=== PATIENT | male | born 1930 | race Caucasian/White ===

== ENCOUNTER 2016-11-30 10:21 | Outpatient (CLI) | payer MEDICARE, OTHER | END 2016-11-30 10:22 | disposition home or self-care (01) | LOC: SC 10:21 | PROVIDERS: ATTEND Internal Medicine Pulmonary Disease | DX: G47.33 Obstructive sleep apnea (adult) (pediatric) (principal) | CPT/HCPCS: 99203; G0463; 99212 ==

== ENCOUNTER 2016-12-24 22:36 | Outpatient (CLI) | payer MEDICARE, OTHER | END 2016-12-24 22:37 | disposition home or self-care (01) | LOC: SC 22:36 | PROVIDERS: ATTEND Internal Medicine Pulmonary Disease | DX: G47.33 Obstructive sleep apnea (adult) (pediatric) (principal) | CPT/HCPCS: 95810 ==

== ENCOUNTER 2017-01-07 09:17 | Outpatient (CLI) | payer MEDICARE, OTHER | END 2017-01-07 09:18 | disposition home or self-care (01) | LOC: SC 09:17 | PROVIDERS: ATTEND Nurse Practitioner Family | DX: G47.33 Obstructive sleep apnea (adult) (pediatric) (principal); I49.9 Cardiac arrhythmia, unspecified | CPT/HCPCS: 99214; G0463; 99212 ==

== ENCOUNTER 2017-02-05 20:40 | Outpatient (CLI) | payer MEDICARE, OTHER | END 2017-02-05 20:41 | disposition home or self-care (01) | LOC: SC 20:40 | PROVIDERS: ATTEND Internal Medicine Pulmonary Disease | DX: G47.33 Obstructive sleep apnea (adult) (pediatric) (principal); G47.61 Periodic limb movement disorder; R09.02 Hypoxemia; Z68.30 Body mass index [BMI] 30.0-30.9, adult | CPT/HCPCS: 95811 ==

== ENCOUNTER 2017-02-18 10:16 | Outpatient (CLI) | payer MEDICARE, OTHER | END 2017-02-18 10:17 | disposition home or self-care (01) | LOC: SC 10:16 | PROVIDERS: ATTEND Nurse Practitioner Family | DX: G47.33 Obstructive sleep apnea (adult) (pediatric) (principal); G47.61 Periodic limb movement disorder; R09.02 Hypoxemia | CPT/HCPCS: 99214; G0463; 99212 ==

== ENCOUNTER 2017-03-22 10:56 | Outpatient (CLI) | payer MEDICARE, OTHER | END 2017-03-22 10:57 | disposition home or self-care (01) | LOC: SC 10:56 | PROVIDERS: ATTEND Nurse Practitioner Family | DX: G47.33 Obstructive sleep apnea (adult) (pediatric) (principal) | CPT/HCPCS: 99214; G0463; 99212 ==

== ENCOUNTER 2017-05-06 10:48 | Outpatient (CLI) | payer MEDICARE, OTHER | END 2017-05-06 10:49 | disposition home or self-care (01) | LOC: SC 10:48 | PROVIDERS: ATTEND Nurse Practitioner Family | DX: G47.33 Obstructive sleep apnea (adult) (pediatric) (principal); R09.02 Hypoxemia | CPT/HCPCS: 99213; G0463; 99212 ==

== ENCOUNTER 2018-02-22 08:00 | Outpatient (CLI) | payer MEDICARE, OTHER | END 2018-02-22 08:01 | disposition home or self-care (01) | LOC: LAB.WCP 08:00 | PROVIDERS: ATTEND Family Medicine | DX: R41.3 Other amnesia (principal) | CPT/HCPCS: 36415; 82607 ==

== ENCOUNTER 2018-06-17 13:33 | Outpatient (CLI) | payer MEDICARE, OTHER ==
--- NOTE | 2018-06-17 14:48 | XRAY Report ---
Reason: CHEST CONGESTION Procedure Date: 06/17/2018 Accession Number: [id number] / [id number] Procedure: WCP - Chest 2 View X-Ray CPT Code: 65481 FULL RESULT: EXAM: CHEST RADIOGRAPHY EXAM DATE: 06/17/2018 01:53 PM. CLINICAL HISTORY: Cough. COMPARISON: None. TECHNIQUE: 2 views. FINDINGS: Lungs/Pleura: No focal opacities evident. No pleural effusion. No pneumothorax. Normal volumes. Mediastinum: Heart and mediastinal contours are unremarkable. Other: Left-sided cardiac implant is in place with leads projecting over right atrium and right ventricular apex. IMPRESSION: No acute cardiopulmonary abnormality demonstrated. RADIA
== END 2018-06-17 13:34 | disposition home or self-care (01) ==
LOC: DI.WCP 13:33
PROVIDERS: ATTEND Family Medicine
DX: R09.89 Other specified symptoms and signs involving the circulatory and respiratory systems (principal)
CPT/HCPCS: 71046

== ENCOUNTER 2018-12-28 14:20 | Emergency (ER) | payer MEDICARE, OTHER ==
--- NOTE | 2018-12-28 15:33 | ED Physician Documentation ---
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 He has taken several indomethicin tablets from a previous, out- of date prescription. Over the last several days he has had redness, swelling and pain over his base of his right great toe. It is now painful for him to walk, so he presented to the emergency department. He denies fever, chills. He otherwise feels well. The area of his chronic heel infection he states is unchanged, and is on the opposite side of his foot from his toe. He thinks they are unrelated. No trauma to the toe Review of Systems Constitutional: denies: Fever Cardiac: denies: Chest pain / pressure Respiratory: denies: Dyspnea GI: denies: Abdominal Pain Skin: reports: Rash Musculoskeletal: reports: Extremity pain PD PAST MEDICAL HISTORY - Past Medical History Musculoskeletal: Other (Chronic infection of right heel) - Past Surgical History Other past surgical history: R knee replacement - Present Medications Home Medications: Ambulatory Orders Medication Instructions Recorded Confirmed Gabapentin [Neurontin] 300 mg PO HS 09/22/12 09/22/12 Sildenafil Citrate [Viagra] 25 mg PO PRN 09/22/12 09/22/12 Ca Cmb No.1/Vit D3/B-6/FA/B12 1 each PO DAILY 01/24/13 01/24/13 [Vitamin D3 1,000 Unit Tablet] Krill/Om3/Dha/Epa/Om6/Lip/Astx 1 each PO DAILY 01/24/13 01/24/13 [Krill Oil 1,000 mg Softgel] Multivitamin [Multi-Vitamin Daily] 1 each PO 01/24/13 01/24/13 Tamsulosin [Flomax] 0.4 mg PO BID 01/24/13 01/24/13 Ubidecarenone [Coq-10] 100 mg PO DAILY 01/24/13 01/24/13 Ibuprofen 600 mg PO Q6H PRN #30 tablet 12/28/18 - Allergies Allergies/Adverse Reactions: Allergies Allergy/AdvReac Type Severity Reaction Status Date / Time amoxicillin [Amoxicillin] Allergy Unknown Rash Unverified 09/22/12 12:29 pacemaker AdvReac Uncoded 11/24/12 15:49 - Social History Does the pt have substance abuse?: No PD ED PE NORMAL - Vitals Vital signs reviewed: Yes - General General: Alert and oriented X 3, No acute distress - HEENT HEENT: PERRL - Neck Neck: Supple, no meningeal sign - Cardiac Cardiac: RRR - Respiratory Respiratory: Clear bilaterally - Abdomen Abdomen: Soft, Other (Rotund) - Derm Derm: Warm and dry - Extremities Extremities: Other (Over the right great toe there is erythema, edema, and warmth. Area is tender to palpation especially along the joint. There is some redness extending from the toe region to the midfoot. Over the right heel bandages removed to reveal a 1 center meter by 1 cm chronic appearing wound with no significant erythema. There is a small amount of purulent drainage on the bandage, which patient states is normal for him.Sensation is intact to light touch over the entire foot, patient is able to wiggle his toes. Distal pulses are 2+) - Neuro Neuro: Alert and oriented X 3 - Psych Psych: Normal mood, Normal affect Results - Vitals Vitals: Vital Signs - 24 hr 12/28/18 16:03 Heart Rate 71 Respiratory 18 Rate Blood Pressure 145/65 H O2 Saturation 95 Oxygen O2 Source Room air - Labs Labs: Laboratory Tests 12/28/18 12/28/18 15:46 15:46 WBC 10.8 RBC 4.67 L Hgb 13.5 L Hct 40.9 L MCV 87.6 MCH 28.9 MCHC 33.0 RDW 13.9 Plt Count 218 MPV 10.2 Neut # (Auto) 7.9 H Lymph # (Auto) 1.3 L Stanly # (Auto) 1.3 H Eos # (Auto) 0.1 Baso # (Auto) 0.1 Absolute Nucleated RBC 0.00 Nucleated RBC % 0.0 Sodium 140 Potassium 3.7 Chloride 106 Carbon Dioxide 23 Anion Gap 11.0 BUN 14 Creatinine 1.0 Estimated GFR (MDRD) 71 L Glucose 116 H Calcium 9.3 C-Reactive Protein 6.3 H PD MEDICAL DECISION MAKING - ED course Complexity details: considered differential (Gout, psuedo gout, cellultiis, septic arthitis) ED course: Pt presents with podagra with a history of gout. He also has a chronic heel infection, through this is the opposite side of his foot and does not appear inflamed. He is afebrile, with no leukocytosis, and only a very mildly elevated CRP. XR shows no fracture, but changes that are non-specific, and may be seen with gout. I discussed with patient attempting arthrocentesis versus treating for presumed gout and watching very carefully for any signs of progression or infection. He would like to wait and watch, given he has a known diagnosis of gout. I feel this is reasonable. Ibuprofen prescribed and return precautions discussed in depth. Patient agrees and was discharged in the care of his . Departure - Departure Disposition: Home, Self Care Clinical Impression: Podagra Condition: Good Instructions: ED Arthritis Gout Follow-Up: Reza Matute MD [Primary Care Provider] - Tomorrow (If unable to follow up tomorrow and you have any worsening, return to the ED.) Prescriptions: Ibuprofen 600 mg PO Q6H PRN #30 tablet PRN Reason: Pain Comments: You were seen today for pain at the right base of your toe. This is likely gout. We cannot completely exclude infection at this time, if your redness is increasing, or you have increasing pain, return to the emergency department for recheck. If you develop any fever, or there is redness streaking up your leg, return to the emergency department immediately. You may take ibuprofen for discomfort. Please follow-up with your primary care provider Discharge Date/Time: 12/28/18 18:18
[2018-12-28 15:52] LABS: BASOPHILS # (AUTO) 0.1 10^3/uL (0.0-0.1); BASOPHILS % (AUTO) 0.6 %; EOSINOPHILS # (AUTO) 0.1 10^3/uL (0.0-0.7); EOSINOPHILS % (AUTO) 1.1 %; HGB - HEMOGLOBIN 13.5 g/dL (14.0-18.0); LYMPHOCYTES # (AUTO) 1.3 10^3/uL (1.5-3.5); LYMPHOCYTES % (AUTO) 12.4 %; MEAN CORPUSCULAR HEMOGLOBIN 28.9 pg (27.0-31.0); MEAN CORPUSCULAR VOLUME 87.6 fL (80.0-94.0); MEAN PLATELET VOLUME 10.2 fL (7.4-11.4); MONOCYTES # (AUTO) 1.3 10^3/uL (0.0-1.0); NEUTROPHILS # (AUTO) 7.9 10^3/uL (1.5-6.6); NEUTROPHILS % (AUTO) 73.3 %; PLT - PLATELET COUNT 218 10^3/uL (130-450); RED BLOOD COUNT 4.67 10^6/uL (4.70-6.10); RED CELL DISTRIBUTION WIDTH 13.9 % (12.0-15.0); WHITE BLOOD COUNT 10.8 x10^3/uL (4.8-10.8)
[2018-12-28 16:03] VITALS: BP 145/65
--- NOTE | 2018-12-28 16:09 | XRAY Report ---
Reason: Pain in right great toe + hx osteo of heel Procedure Date: 12/28/2018 Accession Number: [id number] / [id number] Procedure: XR - Foot 3 View RT CPT Code: FULL RESULT: EXAM: RIGHT FOOT RADIOGRAPHY EXAM DATE: 12/28/2018 03:30 PM. CLINICAL HISTORY: Pain in right great toe + hx osteo of heel. COMPARISON: None. TECHNIQUE: 3 views. FINDINGS: Bones: Well-corticated periarticular in the first metatarsal head. There is bony prominence of the first metatarsal head. Os navicular. Joints: Valgus angulation of the first metatarsal phalangeal joint. Soft Tissues: Soft tissue swelling along the medial aspect of the first metatarsal head. IMPRESSION: 1. Soft tissue swelling along the medial aspect of the first metatarsal head with well-corticated periarticular erosions in the medial aspect of the first metatarsal head. Findings are nonspecific and well osteomyelitis cannot be excluded gout is also in the differential. If there is continued clinical concern for infection, a forefoot MRI with contrast may be of benefit. 2. No fracture identified. RADIA
[2018-12-28 16:18] LABS: CALCIUM 9.3 mg/dL (8.5-10.3); CRP - C-REACTIVE PROTEIN 6.3 mg/dL (0-1.0)
[2018-12-28] MEDS ORDERED: BUFFERED LIDOCAINE 10 ML SYRINGE SUBQ STA (16:56)
== END 2018-12-28 18:18 | disposition home or self-care (01) ==
LOC: ED 14:20
DX: M10.9 Gout, unspecified (principal); L08.89 Other specified local infections of the skin and subcutaneous tissue; B95.5 Unspecified streptococcus as the cause of diseases classified elsewhere
CPT/HCPCS: 36415; 80048; 85025; 86140; 99283

== ENCOUNTER 2019-05-10 14:46 | Outpatient (CLI) | payer MEDICARE, OTHER | END 2019-05-10 14:47 | disposition critical access hospital (66) | LOC: EMS 14:46 | PROVIDERS: ATTEND Surgery | DX: S09.90XA Unspecified injury of head, initial encounter (principal); W01.0XXA Fall on same level from slipping, tripping and stumbling without subsequent striking against object, initial encounter; Y92.009 Unspecified place in unspecified non-institutional (private) residence as the place of occurrence of the external cause | CPT/HCPCS: A0425; A0429 ==

== ENCOUNTER 2019-05-10 15:04 | Emergency (ER) | payer MEDICARE, OTHER ==
[2019-05-10] MEDS ORDERED: NAPROXEN 250 MG TABLET PO STA (15:22)
[2019-05-10] MEDS ORDERED: ACETAMINOPHEN 325 MG TABLET PO STA (15:22)
--- NOTE | 2019-05-10 16:21 | CT Report ---
Reason: fall forward; struck face/head Procedure Date: 05/10/2019 Accession Number: [id number] / [id number] Procedure: CT - HEAD WO CPT Code: Final Report FULL RESULT: EXAM: CT HEAD EXAM DATE: 05/10/2019 03:56 PM. CLINICAL HISTORY: Fall forward; struck face/head. COMPARISON: None. TECHNIQUE: Multiaxial CT images were obtained from the foramen magnum to the vertex. Reformats: Sagittal and coronal. IV contrast: None. In accordance with CT protocol optimization, one or more of the following dose reduction techniques were utilized for this exam: automated exposure control, adjustment of mA and/or KV based on patient size, or use of iterative reconstructive technique. FINDINGS: Parenchyma: There is mild nonfocal periventricular white matter hypodensity. Negative for acute intracranial hemorrhage. There is no midline shift or herniation. Extraaxial Spaces: No subdural or epidural collections identified. Ventricles: Normal in size and position. Sinuses and Orbits: Imaged paranasal sinuses, orbits, and mastoids show no significant abnormality. Bones: There is a right supraorbital scalp hematoma. No calvarium fracture. Other: None. IMPRESSION: 1. Anterior scalp hematoma. 2. Negative for intracranial hemorrhage, mass-effect or acute intracranial abnormality. 3. Mild generalized nonfocal white matter disease. Nonspecific and most commonly attributed to microangiopathy. RADIA
--- NOTE | 2019-05-10 16:29 | CT Report ---
Reason: fall to face, headache Procedure Date: 05/10/2019 Accession Number: [id number] / [id number] Procedure: CT - CERVICAL SPINE WO CPT Code: Final Report FULL RESULT: EXAM: CT CERVICAL SPINE WITHOUT CONTRAST DATE: 05/10/2019 03:56 PM. HISTORY: Trauma. COMPARISONS: None. TECHNIQUE: Thin-section axial images were acquired of the cervical spine without contrast. Post-processing: Coronal and sagittal reformats. Other: None. In accordance with CT protocol optimization, one or more of the following dose reduction techniques were utilized for this exam: automated exposure control, adjustment of mA and/or KV based on patient size, or use of iterative reconstructive technique. FINDINGS: ALIGNMENT: There is 3 mm anterolisthesis C4 on C5 and C5 on C6 and C7 on T1, likely degenerative. BONES: The bones are osteopenic. No displaced acute fracture identified. The vertebral bodies are normal in height. No suspicious osseous lesions. PARASPINAL SOFT TISSUES: Bilateral carotid artery calcifications. There are heterotopic calcifications in the nuchal ligament. UPPER CHEST: Focus of scarring within the posterior right lung apex. DISKS/JOINTS: Advanced multilevel degenerative changes with disk height loss, uncovertebral joint arthropathy as well as facet joint arthropathy. There is a disk osteophyte complex at C3-C4 with question of small disk osteophyte complexes C4-C5 through C6-C7 There is at least moderate central canal stenosis at C3-C4. Mild central canal stenosis C2-C3, C4-C5 and C5-C6. IMPRESSION: 1. No acute fracture. 2. Multilevel degenerative changes. RADIA
--- NOTE | 2019-05-10 16:30 | CT Report ---
Reason: fall forward; struck nose/face Procedure Date: 05/10/2019 Accession Number: [id number] / [id number] Procedure: CT - MAXILLOFACIAL WO CPT Code: Final Report FULL RESULT: EXAM: CT MAXILLOFACIAL WITHOUT CONTRAST EXAM DATE: 05/10/2019 03:56 PM. CLINICAL HISTORY: Fall forward; struck nose/face. Swelling. COMPARISONS: None. TECHNIQUE: Thin-section axial images were acquired of the face without contrast. Post-processing: Coronal and sagittal reformats. Other: None. In accordance with CT protocol optimization, one or more of the following dose reduction techniques were utilized for this exam: automated exposure control, adjustment of mA and/or KV based on patient size, or use of iterative reconstructive technique. FINDINGS: Soft Tissue: Focal right frontal scalp soft tissue swelling/hematoma and other mild facial soft tissue swelling. Orbits: Symmetric and unremarkable. Bones: Multiple nasal fracture lucencies creating multiple small fragments with mild angulation and also minimal displacement on the left. No other definite fracture is visualized. Dental metallic hardware artifact is present. Temporomandibular Joints: The temporomandibular joints are symmetric and normally located. Sinuses: Possible mucus or polyps anteriorly superiorly within the nasal cavity. Other: Atherosclerotic vascular calcifications. IMPRESSION: Multiple nasal fracture lucencies creating multiple small fragments, with mild angulation and also minimal displacement on the left. RADIA
--- NOTE | 2019-05-10 17:04 | ED Physician Documentation ---
PD HPI HEAD INJURY - Stated complaint Stated Complaint: GLF - Chief complaint Chief Complaint: Trauma Hd/Nk - History obtained from History obtained from: Patient - History of Present Illness Mechanism of head injury: Fell (slid on wet concrete in garage as he was unloading groceries from back of car. Struck face on ground. heard him fall and came out to garage. He was moaning and had injury to nose/face, and could not get up from ground by himself. No prolonged LOC, but could not tell if LOC for few seconds until she was out there.) Where head injury occurred: Home Timing - onset: Today Location of injury: Front (nose and forehead/ midface area.) Quality of pain: Throbbing Associated symptoms: No: LOC, AMS, Nausea / vomiting, Neck pain Symptoms worsen with: Palpation Contributing factors: No: Anticoagulated, Intoxicated Similar symptoms before: Has not had sx before Review of Systems Constitutional: denies: Fever Nose: denies: Rhinorrhea / runny nose, Congestion Throat: denies: Sore throat Respiratory: denies: Cough GI: denies: Vomiting, Diarrhea Musculoskeletal: denies: Extremity pain Neurologic: denies: Generalized weakness, Syncope, Altered mental status, Headache PD PAST MEDICAL HISTORY - Past Medical History Past Medical History: Yes Cardiovascular: Hypertension, Coronary artery disease Respiratory: COPD, Sleep apnea, CPAP use Neuro: Dementia Endocrine/Autoimmune: None GI: None : Benign prostate hypertrophy Musculoskeletal: Other Derm: None - Past Surgical History Past Surgical History: Yes Cardiovascular: Coronary stent, Pacemaker, Cardiac catheterization - Present Medications Home Medications: Ambulatory Orders Medication Instructions Recorded Confirmed Gabapentin [Neurontin] 300 mg PO HS 09/22/12 09/22/12 Sildenafil Citrate [Viagra] 25 mg PO PRN 09/22/12 09/22/12 Ca Cmb No.1/Vit D3/B-6/FA/B12 1 each PO DAILY 01/24/13 01/24/13 [Vitamin D3 1,000 Unit Tablet] Krill/Om3/Dha/Epa/Om6/Lip/Astx 1 each PO DAILY 01/24/13 01/24/13 [Krill Oil 1,000 mg Softgel] Multivitamin [Multi-Vitamin Daily] 1 each PO 01/24/13 01/24/13 Tamsulosin [Flomax] 0.4 mg PO BID 01/24/13 01/24/13 Ubidecarenone [Coq-10] 100 mg PO DAILY 01/24/13 01/24/13 Ibuprofen 600 mg PO Q6H PRN #30 tablet 12/28/18 - Allergies Allergies/Adverse Reactions: Allergies Allergy/AdvReac Type Severity Reaction Status Date / Time amoxicillin [Amoxicillin] Allergy Unknown Rash Verified 05/10/19 15:16 - Social History Does the pt smoke?: No Smoking Status: Never smoker Does the pt drink ETOH?: No Does the pt have substance abuse?: No - Immunizations Immunizations are current?: Yes - POLST Patient has POLST: No PD ED PE NORMAL - Vitals Vital signs reviewed: Yes - General General: Alert and oriented X 3, No acute distress (had blood on nose bridge, some dried blood in nares. Abrasion on forehead. No dental injury. ), Well developed/nourished - HEENT HEENT: Dentition benign, Other (abrasions/partial thickness on bridge of nose and forehead. Dried blood in nares. No septal hematoma. Tender at nose with swelling but not obvious deviation. Congested with mucosal swelling in nares but able to breath both sides. ) - Neck Neck: Supple, no meningeal sign, No adenopathy - Cardiac Cardiac: RRR, No murmur - Respiratory Respiratory: Clear bilaterally, Other (no chestwall tenderness) - Abdomen Abdomen: Soft, Non tender - Derm Derm: Normal color, Warm and dry - Extremities Extremities: No tenderness to palpate, Normal ROM s pain, No calf tenderness / cord - Neuro Neuro: Alert and oriented X 3, No motor deficit, Normal speech Eye Opening: Spontaneous Motor: Obeys Commands Verbal: Oriented GCS Score: 15 Results - Vitals Vitals: Vital Signs - 24 hr 05/10/19 05/10/19 05/10/19 15:16 15:26 18:03 Temperature 36.4 C L 37.2 C Heart Rate 75 77 76 Respiratory 18 18 22 Rate Blood Pressure 162/80 H 145/70 H 175/96 H O2 Saturation 95 94 96 Oxygen O2 Source Room air - Rads (name of study) maxilofacial CT Radiology: Prelim report reviewed (nasal fractures.), See rad report neck CT Radiology: Prelim report reviewed (arthritic changes; no fractures), See rad report head CT Radiology: Prelim report reviewed (no ICH. ), See rad report PD MEDICAL DECISION MAKING - ED course Complexity details: considered differential (abrasions forehead and bridge of nose. No lacs needing suturing. ), d/w patient Departure - Departure Disposition: 01 Home, Self Care Clinical Impression: Facial contusion Qualifiers: Encounter type: initial encounter Qualified Code(s): S00.83XA - Contusion of other part of head, initial encounter Nasal bone fracture Qualifiers: Encounter type: initial encounter Fracture type: closed Qualified Code(s): S02 .2XXA - Fracture of nasal bones, initial encounter for closed fracture Facial abrasion Qualifiers: Encounter type: initial encounter Qualified Code(s): S00.81XA - Abrasion of other part of head, initial encounter Condition: Stable Record reviewed to determine appropriate education?: Yes Instructions: ED Fx Nasal Conf W X Ray Follow-Up: Reza Matute MD [Primary Care Provider] - [facility] [Provider Group] Comments: Ibuprofen or naproxen twice daily for inflammation. Add Tylenol 500 mg every 4- 6 hours if needed for pains. Use some saline spray or drops in the nostrils a few times daily and especially before bed with your CPAP. Use your CPAP if comfortable enough with that otherwise you could be without it for a couple of days. Ice or cool towels to the nose and forehead this evening and tomorrow to reduce swelling. Follow-up with ear nose and throat regarding the nasal fracture. Follow-up in about 1 to 2 weeks after the swelling is gone down. Call tomorrow for an appointment. Discharge Date/Time: 05/10/19 18:04
[2019-05-10 18:05] VITALS: BP 175/96
== END 2019-05-10 18:04 | disposition home or self-care (01) ==
LOC: EDUNIT# → ED 15:04
DX: S02.2XXA Fracture of nasal bones, initial encounter for closed fracture (principal); S00.81XA Abrasion of other part of head, initial encounter; S00.31XA Abrasion of nose, initial encounter; S00.83XA Contusion of other part of head, initial encounter; W01.0XXA Fall on same level from slipping, tripping and stumbling without subsequent striking against object, initial encounter; Y93.89 Activity, other specified; Y92.008 Other place in unspecified non-institutional (private) residence as the place of occurrence of the external cause; M50.31 Other cervical disc degeneration, high cervical region; M48.02 Spinal stenosis, cervical region; I10 Essential (primary) hypertension; F03.90 Unspecified dementia, unspecified severity, without behavioral disturbance, psychotic disturbance, mood disturbance, and anxiety
CPT/HCPCS: 70450; 70486; 72125; 99284; A9270

== ENCOUNTER 2019-05-24 08:00 | Outpatient (CLI) | payer MEDICARE, OTHER ==
[2019-05-24 18:58] LABS: BASOPHILS # (AUTO) 0.1 10^3/uL (0.0-0.1); BASOPHILS % (AUTO) 0.9 %; EOSINOPHILS # (AUTO) 0.5 10^3/uL (0.0-0.7); EOSINOPHILS % (AUTO) 5.2 %; HGB - HEMOGLOBIN 13.8 g/dL (14.0-18.0); LYMPHOCYTES # (AUTO) 1.7 10^3/uL (1.5-3.5); LYMPHOCYTES % (AUTO) 17.5 %; MEAN CORPUSCULAR HEMOGLOBIN 28.8 pg (27.0-31.0); MEAN CORPUSCULAR HGB CONC 32.5 g/dL (32.0-36.0); MEAN CORPUSCULAR VOLUME 88.3 fL (80.0-94.0); MEAN PLATELET VOLUME 10.8 fL (7.4-11.4); MONOCYTES # (AUTO) 0.9 10^3/uL (0.0-1.0); MONOCYTES % (AUTO) 9.5 %; NEUTROPHILS # (AUTO) 6.3 10^3/uL (1.5-6.6); NEUTROPHILS % (AUTO) 66.1 %; PLT - PLATELET COUNT 298 10^3/uL (130-450); RED CELL DISTRIBUTION WIDTH 13.5 % (12.0-15.0); WHITE BLOOD COUNT 9.6 x10^3/uL (4.8-10.8)
[2019-05-24 19:20] LABS: ALBUMIN/GLOBULIN RATIO 1.3 (1.0-2.2); BILIRUBIN,TOTAL 1.4 mg/dL (0.2-1.0); CALCIUM 9.7 mg/dL (8.5-10.3); CREATININE 1.1 mg/dL (0.6-1.2)
== END 2019-05-24 08:01 | disposition home or self-care (01) ==
LOC: LAB.WCP 08:00
PROVIDERS: ATTEND Family Medicine
DX: I50.20 Unspecified systolic (congestive) heart failure (principal); R55 Syncope and collapse
CPT/HCPCS: 36415; 80053; 83880; 84443; 85025

== ENCOUNTER 2020-01-02 09:30 | Outpatient (CLI) | payer MEDICARE, OTHER ==
--- NOTE | 2020-01-02 14:22 | CONSULTATION NOTE ---
Palliative Care Consultation - Referral Referring Provider: Dr. Reza Matute Time of Visit: [id number] Referral setting: Home Referral Reason: Cognitive impairment/Advanced Care Planning - Information Sources Records reviewed: Previous records reviewed History/Review of Systems obtained from: Patient, Family (/TALIB Rae) Exam limitations: Clinical condition ([place] and short term memory impairment noted) - History of Present Illness Brief History of Present Illness: This is an 89 year old gentleman who is seen and evaluated in his home for initial palliative care consultation with his /TALIB Rae present for evaluation due to underlying cognitive impairment and advanced care planning. The patient has had a short-term memory loss over the last several years but has become more pronounced after the patient sustained a fall in May 2019 where he fell in the parking lot of their condo facility. The patient broke his nose and sustained several lacerations that resulted in bleeding and he was evaluated in the emergency department. The patient does recognize that he has some memory impairment. Since May the has noticed a quick decline in his retention. He is also requiring increased prompting and assistance by his . He is no longer able to operate the remote control independently within their home. He also has certain behaviors that he perseverates on that varies. For 1 month he was adamant not to have any of the windows open. Now, he is quite adamant to have the windows open. The patient has developed a cyst to his central back between his shoulder blades. The reports that that has been present for several months and has grown in size. It was not until approximately 1 week ago that it became angry and red. Then in the last few days it has started to weep discharge. The patient has been keeping the site clean and applying a local dressing to keep t he site dry. The patient also had a growth further down his back that was increasing in size. They reported the concerns to his PCP when last evaluated and was seen at the [facility] where a biopsy was performed that was negative for malignancy over the summer. The patient has a small scab to that site but no evidence of erythema. He also has had issues with the heel of his right foot for a pproximately the last 13 years. 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 He did potentially develop an infection that required a surgery but the patient cannot fully recall. Presently the site has a scab to it. He has in the past gone to wound care clinics routinely without full resolution of the site. He denies any pain locally. The patient has had a decline in his appetite but no noted weight loss. He and his both report that his clothes are fitting the same. He he does consume boost during the day to supplement his calories. His reports that he will be engaged regarding a meal but then will pick at it not to completing it. The patient himself denies of acute concerns. The patient's offered com plaints of above as well as the patient having some underlying depression. The patient denies depressive symptoms or sadness. He typically will nap for 6 to 8 hours/day. He is less talkative than he once was where he was engaging. He will sit in front of the television and watch TV without the volume on all day. Patient seen in the living room in side chair well groomed with no acute distress. Medical/Surgical History - Past Medical History Cardiovascular: reports: Hypertension, Coronary artery disease, Other ( Peripheral artery disease) Respiratory: reports: COPD, Sleep apnea, CPAP use Neuro: Dementia Endocrine/Autoimmune: reports: None GI: reports: None : reports: Benign prostate hypertrophy HEENT: reports: Macular degeneration, Chronic hearing loss Musculoskeletal: reports: Other Derm: reports: None MRSA Hx?: No Other Past Medical History: Glaucoma - Past Surgical History General: reports: Other (right hernia repair) Ortho: reports: Other (achilles tendon repair; LTKR 2003) Cardiovascular: reports: Coronary stent (x2), Pacemaker (followed by Dr. Tijerina), Cardiac catheterization - Substance History Use: Uses substance without health or social issues: NONE (Former tobacco use for 35 years) Social History - Living Situation Living arrangement: At home Living Situation: With spouse/s.o. 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 He then transition to [employer] where he worked with [employer]. He was born in [place], [place]. He lived in [place] for some time. He is presently to his fourth , Kyra. The patient and the Kyra have been for approximately 7 years after they reconnected has they both grew up in [place] and went to high school together. The patient has 1 daughter from a previous marriage, Marcia who still resides in [place]. Kyra has a son that lives locally in [place]. The patient continues to be obsessed with flying. He wishes that he would still be able to do this. He does not have any other interests that he does throughout the day except watch TV. They have a shower aide who attends the patient during the week. Family History - Family History Family History: Mother: , Father: Family History Comment/Other: Sister, history of open heart surgery and dementia presently living in memory care. Brother, with dementia and history of aneurysm. Father in late 70s early/ 80s from myocardial infarction. Mother of "old age" at age 98. Medications/Allergies - Medications Home Medications: Ambulatory Orders Medication Instructions Recorded Confirmed Aspirin [Aspirin EC] 81 mg PO DAILY 01/02/20 01/02/20 Atorvastatin Calcium 20 mg PO BID 01/02/20 01/02/20 Carvedilol [Coreg] 1 tab PO BID 01/02/20 01/02/20 Chlorthalidone 0.5 tab PO DAILY 01/02/20 01/02/20 Clindamycin HCl [Clindamycin 300MG 2 cap PO .1HRPRIORTODENTIST 01/02/20 01/02/20 CAP] Latanoprost/Pf [Latanoprost 0.005% 1 drops .LEFT EYE DAILY 01/02/20 01/02/20 Eye Drop] Potassium Chloride [Klor-Con 10] 10 meq PO DAILY 01/02/20 01/02/20 - Allergies Allergies/Adverse Reactions: Allergies Allergy/AdvReac Type Severity Reaction Status Date / Time amoxicillin [Amoxicillin] Allergy Unknown Hives Verified 01/02/20 14:34 Review of Systems - Constitutional Constitutional: reports: Fatigue, Poor appetite. denies: Fever, Weight loss - Eyes Eyes: reports: Vision loss (left eye), Corrective lenses - Ears, Nose & Throat Ears, Nose & Throat: reports: Hearing loss, Hearing aids (does not have earing aids presently) - Cardiovascular Cardiovascular: denies: Palpitations, Chest pain - Respiratory Respiratory: denies: Cough, Wheezing - Gastrointestinal Gastrointestinal: reports: Poor appetite (see HPI for full details), Other (in last 3-4 months has noticed episodes of feccal incontinence). denies: Abdominal pain, Constipation, Diarrhea, Vomiting - Genitourinary Genitourinary: reports: Incontinence. denies: Dysuria - Musculoskeletal Musculoskeletal: reports: Assistive devices, Transfer issues. denies: Joint pain - Integumentary Integumentary: reports: Lesions (see HPI for additional details) - Neurological Neurological: reports: General weakness, Dizziness, Memory problems - Psychiatric Psychiatric: denies: Depression (patient denies but confirms depressive sy mptoms) - Endocrine Endocrine: denies: Diabetes type 2 - Hematologic/Lymphatic Hematologic/Lymphatic: denies: Recurrent infections - All Other Systems All Other Systems: reports: Reviewed and negative (Patient is a poor historian due to dementia and additional review of systems obtained from patient's /D Kyra ALMAGUER.) Physical Exam - Vital Signs Temperature: 97.9 C Pulse Rate: 64 O2 Saturation: 95 (on RA at rest) Blood Pressure: 144/77 (left cuff) - Physical Exam General Appearance: positive: No acute distress, Alert ENT: positive: No signs of dehydration, Other (Right ear canal clear with noted scarring to right TM; left ear canal with trace, dried yellow cerumen to TM visible and intact but unable to remove cerumen with lighted currette) Neck: positive: Trachea midline Cardiovascular: positive: Regular rate & rhythm, No murmur Respiratory: positive: No respiratory distress, Other (bibasal crackles) Abdomen: positive: Non-tender, Soft, Nml bowel sounds. negative: Distended Skin: positive: Other ((1) induration mid-back between shoulder blades appx 3cm x 3cm lightly warm to touch, erythema slightly beyond margins with yellow and gr een tinged discharge expressed when pressed (2) scab to right heel (chronic) (3) scab to lower back s/p biopsy without erythema or s/s of infection) Extremities: positive: No pedal edema Neurologic/Psychiatric: positive: Oriented x3 (memory deficits noted; defers to for assistance with questions; memory recall 1/3 after 5 minutes), Flat affect Palliative Care - POLST Patient has POLST: No Pain: No pain Tiredness/Fatigue: Mild (1-3) Drowsiness/Sedation: Mild (1-3), Moderate (4-6) (sleeps 6-8 hours per day in common area and will lay down 3 times per day) Nausea: None Anorexia: Mild (1-3) Dyspnea: Mild (1-3) Depression: Mild (1-3) (reported by but not perceived by patient) Anxiety: None Sleep: Sleeps well Constipation: No Performance Status: Patient is ambulatory with a Rollator. No recent falls.Requires cueing on how to use certain devices within the home as he has forgotten. - Palliative Care Discussion: The patient's and is noted a cognitive decline over several years that has been more prominent after he sustained a fall in May 2019. It is unclear that the fall was the precipitating factor in his further cognitive decline but may be an unrelated correlation. Presently the patient is solely cared for by his . They do have a bath aide that comes to assist with showers. The patient has expressed previously to his that he would not want any heroics. He does have a healthcare power of patent attorney and living will in place that the patient's will provide copies at next visit. Although the patient declines depressive symptoms the reports that aero support this. He is obsessed with flying and missing this. He has a decrease in oral intake. She also reports that he used to be an extensive conversatio nalist and engaged in conversations with her and now appears to be content sitting in front of the TV without the volume on. The patient's is hesitant to initiate any oral medication and would like to explore cognitive behavioral therapy and counseling support. Her hesitancy comes from the patient's glass sander belt not wishing for the patient to be on any new medication. The patient's is looking in the future for management and care to support them both. Her first was on hospice services with a diagnosis of Lewy body dementia. The patient's has experienced with caring for an individual with dementia in the past. The patient's has a very supportive and loving family that are able to provide assistance from emotional standpoint. The patient's son lives locally and [place]. The patient does have a daughter that resides in [place] and just completed a visit to the area. 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 The patient and his /D POA are wishing to explore other options regarding advanced care planning. Palliative care to continue provide support, goals of care exploration, symptom management and advance care planning. Recommendations/Counseling Done: 1. Infected sebaceous cyst. Noted between bilateral shoulder blades. Will initiate doxycycline 100 mg twice daily x7 days for cellulitis as the patient has a history of allergy to amoxicillin. Reviewed purpose, dose and side effects with the patient and his regarding antibiotic therapy with understanding verbalized. And encouraged to apply a warm compress to the cyst for 10 minutes 3 times a day for the next 7 days. Reviewed signs and symptoms of worsening infection such as spreading redness and warmth and to contact [facility] or PCP if after hours for further guidance with understanding verbalized. Has this is longstanding and to prevent reoccurrence will refer to general surgeon for removal and offered facilities to the patient's and is agreeable to go to [facility]. To request that general surgery contact patient and spouse to set up appointment for removal. 2. Decreased oral intake. No noted weight loss reported. Continue to provide boost supplementation for caloric intake. Continue to offer patient meals that he finds desirable. We will continue to monitor. Consider and initiation of antidepressive medication in the future if depressive symptoms are contributing factors such as mirtazapine. Continue to monitor. 3. Depression. Patient himself denies depressive symptoms but supports underlying depression as noted in HPI. At this time will avoid any oral antidepressive medications and request that palliative care social work provide support to the patient as well as counseling for both the patient and his spouse. Would consider in the future sertraline or mirtazapine. Patient's wishes to discuss with the patient's glass sander belt Dr. Linsey Fortune before proceeding with any oral medications. At this time will provide support to the patient through counseling and will reassess the need for any antidepressant medication in the future. 4. Dementia. Likely mixed or vascular in nature given the patient's family history of dementia as well as underlying cardiac history. Chronic. Prog ressive. Fall precautions. Patient's has had experience with caring for individuals with dementia in her past. On no disease modifying agents. Given the patient's advanced age and chronic comorbidities a gradual decline is expected. 5. Advanced care planning. Patient does not have POLST within the home at the present time. Patient's reports that the patient would not want any her oics. He has an advanced care directive as well as a living will with the patient's to provide for copies at next visit. Provided copy of blank POLST for the patient and his spouse to review and discuss prior to next evaluation. In regards to advance care planning to the discussed hoping for the best but planning for the future as the patient progresses. Patient's is open to discussing options and had questions in regards to respite stay if she needed to have a reprieve. Provided list for local facilities that provide respite that she may contact to explore that avenue in the future. We will also request that palliative care social media specialist also provide any assistance or regarding future planning needs. Time Spent: F/u in 4-6 weeks or sooner if new or worsening symptoms. Total time spent 105 minutes with greater than 50% of this spent in counseling and coordination of care with patient and /DPOA; palliative philosophy; progression of dementia with signs and symptoms; overview of sebaccuous cyst causes and s/s of infection; review of symptom management and anticipatory guidance. Disclaimer: The chart note was formulated using voice recognition technology and unfortunately sound alike errors may occur.
== END 2020-01-02 09:31 | disposition home or self-care (01) ==
LOC: PC 09:30
PROVIDERS: ATTEND Nurse Practitioner Family
DX: Z51.5 Encounter for palliative care (principal); L03.312 Cellulitis of back [any part except buttock and flank]; L72.3 Sebaceous cyst; F03.90 Unspecified dementia, unspecified severity, without behavioral disturbance, psychotic disturbance, mood disturbance, and anxiety; R63.0 Anorexia; F32.9 Major depressive disorder, single episode, unspecified; R53.1 Weakness; I10 Essential (primary) hypertension; I25.10 Atherosclerotic heart disease of native coronary artery without angina pectoris; I73.9 Peripheral vascular disease, unspecified; Z79.899 Other long term (current) drug therapy; Z79.82 Long term (current) use of aspirin; Z74.09 Other reduced mobility; Z91.81 History of falling; Z95.5 Presence of coronary angioplasty implant and graft; Z95.0 Presence of cardiac pacemaker
CPT/HCPCS: 99345

== ENCOUNTER 2020-02-07 12:45 | Outpatient (CLI) | payer MEDICARE, OTHER ==
--- NOTE | 2020-02-07 15:44 | CONSULTATION NOTE ---
Palliative Care Follow Up - Referral Referring Provider: Dr. Matute Time of Visit: Initiated 1250 Referral setting: Assisted living Referral Reason: Dementia/Adjustment to placement - Information Sources Records reviewed: Previous records reviewed History/Review of Systems obtained from: Patient, Family (, Kyra via phone), Caregiver, Nursing Exam limitations: Clinical condition (TOHONO O'[place]AM and poor historian due to dementia) - History of Present Illness Update Brief HPI Update: This is an 89-year-old gentleman who was seen in [facility] due to dementia and evaluation of adjustment to facility placement. The patient has had short-term memory loss over the last several years that has been come more per notes after patient sustained a fall in May 2019. Please see HPI dictated on 01/02/2020 for further details. It was becoming too much for the patient's /D Kyra ALMAGUER to care for the patient at home with his underlying behaviors such as flushing things down the toilet that she made the move to have the [facility] to [facility] approximately 2 weeks ago. The adjustment in transition has been difficult for both the patient as well as his spouse. The patient's spouse Mrs. the patient's presents within the home but is aware that "this is for the best." The patient himself reports that he misses his and does not get to speak to her as much as he likes. The patient's is scheduled for a out door door visit tomorrow and she is optimistic in regards to how the visit will go. The patient was recently visited by a neighbor who reported to the that he is adjusting well. The patient continues to express the desire to return home. Caregivers report that the patient's will prefer to take meals in his room. He is cooperative with no behavioral concerns reported from the caregivers. He will go for walks with the caregivers and chat with other residents but does not wish to be in the common area. When last seen by this [facility] he had developed an inflamed epidermal cyst and was initiated on antibiotic therapy he was referred to surgery for removal and drainage. On 01/11/2020 he was seen by outpatient surgery and had the epidermal inclusion cyst drained and removed. Presently, the patient has a scab to the site without any signs of inflammation. Patient is seen in his bedroom sitting on the edge of his bed. No evidence of acute distress. Patient has a past medical history ofDementia, hypertension, coronary artery disease, peripheral arterial disease, COPD, sleep apnea with CPAP, BPH, macular degeneration, chronic hearing loss, glaucoma, coronary stent x2, pacemaker followed by Dr. Tijerina, cardiac catheterization, right hernia repair, total knee replacement 2002, Achilles tendon repair. 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 He was born in [facility]. He is presently to his fourth , Kyra. The patient and his have been for approximately 7 years. The patient has 1 daughter, Marcia, from a previous marriage who still resides in [place]. Kyra has a son that lives in the [facility]. The patient was residing at home in his [facility] with his until he [facility] to [facility] in January 2020. Followed by palliative care social media marketing specialist. Medications/Allergies - Medications Home Medications: Ambulatory Orders Medication Instructions Recorded Confirmed Aspirin [Aspirin EC] 81 mg PO DAILY 01/02/20 02/07/20 Atorvastatin Calcium 40 mg PO QPM 01/02/20 02/07/20 Carvedilol [Coreg] 1 tab PO BID 01/02/20 02/07/20 Chlorthalidone 0.5 tab PO DAILY 01/02/20 02/07/20 Clindamycin HCl [Clindamycin 300MG 2 cap PO .1HRPRIORTODENTIST 01/02/20 02/07/20 CAP] Latanoprost/Pf [Latanoprost 0.005% 1 drops .LEFT EYE DAILY 01/02/20 02/07/20 Eye Drop] Potassium Chloride [Klor-Con 10] 10 meq PO DAILY 01/02/20 02/07/20 Acetaminophen [Tylenol] 650 mg PO Q6H PRN 02/07/20 02/07/20 Antacid With Smithicone 30 ml PO Q4H PRN 02/07/20 Bisacodyl Supp [Dulcolax Supp] 10 mg SD DAILY PRN 02/07/20 02/07/20 Dorzolamide HCl/Pf [Dorzolamide 2% 1 drops BID MDD left eye 02/07/20 02/07/20 Eye Drop] Loperamide [Imodium] PRN MDD as directed 02/07/20 Magnesium Hydroxide [Milk of 30 ml PO DAILY PRN MDD if NO BM 02/07/20 02/07/20 Magnesia] after 3 days - Allergies Allergies/Adverse Reactions: Allergies Allergy/AdvReac Type Severity Reaction Status Date / Time amoxicillin [Amoxicillin] Allergy Unknown Hives Verified 01/02/20 14:34 Review of Systems - Constitutional Constitutional: reports: Fatigue, Weight loss (01/22/2020 weight 203lb; weight 02/06/2020 196.9lb). denies: Fever - Eyes Eyes: reports: Vision loss (left eye), Corrective lenses - Ears, Nose & Throat Ears, Nose & Throat: reports: Hearing loss, Hearing aids - Cardiovascular Cardiovascular: denies: Chest pain - Respiratory Respiratory: denies: Cough - Gastrointestinal Gastrointestinal: denies: Constipation, Diarrhea, Vomiting - Genitourinary Genitourinary: reports: Incontinence. denies: Dysuria - Musculoskeletal Musculoskeletal: denies: Joint pain - Integumentary Integumentary: reports: Other (scab to center back s/p removal of epidermal inclusion cyst) - Neurological Neurological: reports: General weakness, Memory problems. denies: Headache - Psychiatric Psychiatric: reports: Depression - Endocrine Endocrine: denies: Diabetes type 2 - Hematologic/Lymphatic Hematologic/Lymphatic: denies: Recurrent infections - All Other Systems All Other Systems: reports: Reviewed and negative (ROS limited as patient is poor historian due to dementia. Additional ROS obtained from via phone and caregivers.) Physical Exam - Vital Signs Temperature: 36.2 C Pulse Rate: 71 O2 Saturation: 94 (on RA at rest) Blood Pressure: 131/68 (left wrist cuff) - Physical Exam General Appearance: positive: No acute distress, Alert Eyes Bilateral: positive: Normal inspection ENT: positive: No signs of dehydration Neck: positive: Trachea midline Cardiovascular: positive: Regular rate & rhythm, No murmur Respiratory: positive: No respiratory distress, Other (bibasal crackles) Abdomen: positive: Non-tender, Soft, Nml bowel sounds Skin: positive: Other ( (1) scab to mid-back between shoulder blades s/p epidermal inclusion cyst removal without surrounding erythema or discharge (2) scab to right heel (chronic)) Extremities: positive: No pedal edema Neurologic/Psychiatric: positive: Oriented x3 (forgetful), Flat affect Palliative Care - POLST Patient has POLST: Yes POLST Status: DNR, Comfort Measures Pain: No pain Drowsiness/Sedation: Comment (Reports that he sleeps "half the day") Anorexia: Mild (1-3) Dyspnea: None Depression: Mild (1-3) (presently with appropriate grief for leaving his and condo) Sleep: Sleeps well Constipation: No, Managed Performance Status: Patient is ambulatory with a Rollator. No recent falls. FAST 6D - Palliative Care Discussion: The patient has had a cognitive decline over several years that has been more prominent after he sustained a fall in May 2019. He [facility] and has found the adjustment difficult. He is quite ready to go back home. He is not displaying any disruptive behaviors. The patient misses his and does not appreciate his cognitive losses that have resulted in his requiring more oversight and care. The patient looks forward to his phone calls with his . His reports during the phone calls that she finds that he is repetitive and repeating things from earlier on in the conversation. This adjustment has been difficult for the patient's as well. She finds that she is missing him and has guilt over the move. However, she does also appreciate that it was becoming overwhelming for her to continue to care for the patient within their home setting. The patient's , Kyra was appreciative for supportive listening from palliative care social media marketing specialist last week to assist her with this adjustment. She also has supportive family and friends during this transition. Reviewed with the patient's that it can take some time for both the patient as well as herself to adapt to the new routine and environment. The patient is presently displaying appropriate expression of his loss. If he continues to demonstrate underlying depressive symptoms in conjunction has well with weight loss then would consider treatment and in agreement. CESAR ST completed and reviewed today with the patient's /D POA as DN AR with comfort measures, no antibiotic treatment except for symptom management, and no artificially assisted nutrition by tube. The patient's wishes to focus on quality of life and symptom management with a transition to hospice when medically appropriate. The patient's has prior experience with hospice services as her former had a diagnosis of Lewy body dementia and was on hospice before his . Impression and Recommendations - Palliative Care Impression: This is an 89-year-old gentleman with a significant cardiac history with underlying dementia, likely in vascular in nature, F AST 60 who is beginning to adjust to his new assisted living environment but is grieving the loss of his prior life. He has had resolution of his epidermal inclusion cyst to his mid upper back. Palliative care to continue provide support, symptom management and advance care planning. Recommendations/Counseling Done: 1. Weight loss. Patient has lost approximately 6 pounds since admission to [facility]. He is presently on meal monitoring. Previously reported decreased oral intake by the patient's when initial palliative care assessment. Patient presently displaying appropriate signs of loss. If continues to display signs of depressive symptoms as well as continued weight loss then would consider and initiation of mirtazapine 7.5 mg nightly. Continue to monitor. 2.Depression. Palliative care social work to provide counseling and support for both the patient and his spouse. Supportive listening provided. Patient is adjusting to his new home environment and this may take some time typically approximately 1 month or slightly more. Patient denies SI or HI. If patient continues to demonstrate underlying depressive symptoms or further difficulty with adjustment to his new circumstances then consider initiation of mirtaz apine. Continue to monitor. 3.Epidermal inclusion cyst. To mid upper back. Status post surgery consult with removal and oral antibiotic therapy. Resolved. 4.Dementia. Likely mixed or vascular nature given the patient's family history of dementia as well as his underlying cardiac history. Chronic. Progressive. Fall precautions. On no disease modifying agents. Given the patient's advanced age and chronic comorbidities a gradual decline is expected. 5.Advance care planning. POLST completed today with patient's as DN AR with comfort measures. Continue to provide support for the patient and his in the assisted living environment. Patient's wishes to focus on quality of life and comfort measures. She wishes that they both "live where we are." When the time comes the patient's wishes to have the patient transition to hospice services. Time Spent: CPT 85063 POC reviewed with patient's and nursing staff with understanding verbaized. Supportive listening provided to Kyra. Disclaimer: The chart note was formulated using voice recognition technology and unfortunately sound alike errors may occur. CC: ANJU Beltran
== END 2020-02-07 12:46 | disposition home or self-care (01) ==
LOC: PC 12:45
PROVIDERS: ATTEND Nurse Practitioner Family
DX: Z51.5 Encounter for palliative care (principal); R63.4 Abnormal weight loss; F32.9 Major depressive disorder, single episode, unspecified; F03.90 Unspecified dementia, unspecified severity, without behavioral disturbance, psychotic disturbance, mood disturbance, and anxiety; E11.9 Type 2 diabetes mellitus without complications; I10 Essential (primary) hypertension; I25.10 Atherosclerotic heart disease of native coronary artery without angina pectoris; Z95.0 Presence of cardiac pacemaker; Z66 Do not resuscitate

== ENCOUNTER 2020-03-05 15:50 | Outpatient (CLI) | payer MEDICARE, OTHER ==
--- NOTE | 2020-03-05 18:12 | CONSULTATION NOTE ---
Palliative Care Follow Up - Referral Referring Provider: ANJU Beltran Time of Visit: Initated 1550 Referral setting: Assisted living Referral Reason: Depression/Dementia - Information Sources Records reviewed: RN notes reviewed History/Review of Systems obtained from: Patient, Family (/DPOA via phone), Caregiver, Nursing Exam limitations: Clinical condition (KAIBAB and poor historian due to dementia) - History of Present Illness Update Brief HPI Update: This is an 89-year-old gentleman who was seen in follow-up [facility] at [facility] due to depression and dementia. Became more prominent after the patient sustained a fall in May 2019. Please see HPI dictated on 01/02/2020 for further details. The patient's /DPOA, Kyra was experiencing increased caregiver burden and the patient transition to [facility] where he has been for several weeks. The patient continues to have difficulty adjusting to his present environment. He prefers to stay in his room. The staff at [facility] have been now been bringing the patient to a different pod within the facility to have further engagement with additional residents. Overall, despite attempts of engagement during mealtimes and walking the patient on a routine basis, the patient continues to opt to remain in his room. At home, the patient also was quiet and displayed depressive symptoms per the 's report. This has continued. The patient has demonstrated weight loss from admission weight of 203 pounds to presently 192.2 pounds. He has been on meal monitoring ranging between 25 to 100% of his meals are consumed. The patient himself relays that he is tired and does not want to do anything but "sleep." He offers no other acute complaints while in requested today. Previously the patient expressed the desire to return home but today, he does not easily offer this up despite engagement. Past Medical History: Patient has a past medical history of dementia, hypertension, coronary artery disease, peripheral arterial disease, COPD, sleep apnea with CPAP, BPH, macular degeneration, chronic hearing loss. Glaucoma, coronary stent x2, pacemaker followed by Dr. Mayberry, cardiac catheterization, right hernia repair, total knee replacement 2002, Achilles tendon repair. 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 He was born in [place], [place]. He is presently to his fourth , Kyra. The patient and his Kyra have been for approximately 7 years. The patient has 1 daughter, Marcia from a previous marriage who resides in [place]. Patient is followed by palliative care executive secretary social welfare. Medications/Allergies - Medications Home Medications: Ambulatory Orders Medication Instructions Recorded Confirmed Aspirin [Aspirin EC] 81 mg PO DAILY 01/02/20 02/07/20 Atorvastatin Calcium 40 mg PO QPM 01/02/20 02/07/20 Carvedilol [Coreg] 1 tab PO BID 01/02/20 02/07/20 Chlorthalidone 0.5 tab PO DAILY 01/02/20 02/07/20 Clindamycin HCl [Clindamycin 300MG 2 cap PO .1HRPRIORTODENTIST 01/02/20 02/07/20 CAP] Latanoprost/Pf [Latanoprost 0.005% 1 drops .LEFT EYE DAILY 01/02/20 02/07/20 Eye Drop] Potassium Chloride [Klor-Con 10] 10 meq PO DAILY 01/02/20 02/07/20 Acetaminophen [Tylenol] 650 mg PO Q6H PRN 02/07/20 02/07/20 Antacid With Smithicone 30 ml PO Q4H PRN 02/07/20 Bisacodyl Supp [Dulcolax Supp] 10 mg [place] DAILY PRN 02/07/20 02/07/20 Dorzolamide HCl/Pf [Dorzolamide 2% 1 drops BID MDD left eye 02/07/20 02/07/20 Eye Drop] Loperamide [Imodium] PRN MDD as directed 02/07/20 Magnesium Hydroxide [Milk of 30 ml PO DAILY PRN MDD if NO BM 02/07/20 02/07/20 Magnesia] after 3 days Sertraline [Zoloft] 25 mg PO DAILY 03/05/20 03/05/20 - Allergies Allergies/Adverse Reactions: Allergies Allergy/AdvReac Type Severity Reaction Status Date / Time amoxicillin [Amoxicillin] Allergy Unknown Hives Verified 01/02/20 14:34 Review of Systems - Constitutional Constitutional: reports: Fatigue, Weight loss. denies: Fever - Eyes Eyes: reports: Vision loss (left eye), Corrective lenses - Ears, Nose & Throat Ears, Nose & Throat: reports: Hearing loss - Cardiovascular Cardiovascular: denies: Chest pain, Edema - Respiratory Respiratory: denies: Cough - Gastrointestinal Gastrointestinal: reports: Good appetite. denies: Constipation, Vomiting - Genitourinary Genitourinary: reports: Incontinence - Musculoskeletal Musculoskeletal: reports: Assistive devices. denies: Joint pain - Integumentary Integumentary: denies: Pruritis - Neurological Neurological: reports: General weakness, Memory problems - Psychiatric Psychiatric: reports: Depression - Endocrine Endocrine: denies: Diabetes type 2 - Hematologic/Lymphatic Hematologic/Lymph: Other (No recurrent infections) - All Other Systems All Other Systems: reports: Reviewed and negative (ROS is limated as patient is a poor historian due to dementia. Additional ROS supplemented by nursing and caregiving staff.) Physical Exam - Vital Signs Temperature: 36.3 C Pulse Rate: 60 O2 Saturation: 95 (on RA at rest) Blood Pressure: 131/82 (left wrist cuff) - Physical Exam General Appearance: positive: No acute distress, Alert, Other (laying in bed) Eyes Bilateral: positive: Normal inspection ENT: positive: No signs of dehydration Neck: positive: Trachea midline Cardiovascular: positive: Regular rate & rhythm, No murmur Respiratory: positive: No respiratory distress, Other (bibasal crackles). negative: Wheezes Abdomen: positive: Non-tender, Soft, Nml bowel sounds Skin: positive: Dryness Extremities: positive: No pedal edema Neurologic/Psychiatric: positive: Oriented x3 (forgetful), Depressed mood/affect Palliative Care - POLST Patient has POLST: Yes POLST Status: DNR, Comfort Measures Pain: No pain Tiredness/Fatigue: Moderate (4-6) Drowsiness/Sedation: Moderate (4-6) Nausea: None Anorexia: None Dyspnea: None Depression: Mild (1-3) (Denies SI) Constipation: No Performance Status: FAST 6D - Palliative Care Discussion: The patient has [facility] to [facility] and has expressed a desire to return home to his . On last evaluation with this [facility] the patient reported that his was working to get him out of the facility to return home. Today however, the patient did not express a desire to return home. He did display evidence of depressive symptoms with noted weight loss and desire to continue to remain in his room despite encouragement by the facility staff. Prior to the patient's transition to [facility] he was also demonstrating evidence of depressive symptoms. He denies suicidal ideation. The patient's has found the transition to difficult as she wishes to do what is best for the patient himself. She has found working with the palliative care executive secretary social welfare beneficial for her ability to cope and have a supportive year. She is open to a trial of an antidepressant inorder to improve his quality of life. Impression and Recommendations - Palliative Care Impression: This is an 89-year-old gentleman with a significant cardiac history with underlying dementia likely vascular nature, F AST 60, who is demonstrating depressive symptoms. He is continuing to adjust to his new living environment and will continue to need support during this transition. Palliative care to continue provide support, symptom management and advance care planning. Recommendations/Counseling Done: 1. Weight loss. Patient has lost approximately 10 pounds since his admission to [facility]. He is on meal monitoring. He is doing well regarding consumption of his meals but continues to prefer being alone during mealtimes. Underlying weight loss likely due to depressive symptoms. See diagnosis depression for further details. 2.Depression. Patient continues to adjust to his new home environment and is considered displaying signs of isolation, daytime fatigue and weight loss indicative of depressive symptoms. Continue to encourage the patient to participate in activities within the facility as well as routine ambulation with the facility staff. There is an upcoming veterans recognition on 03/20 and encourage the patient to attend. Given his overall reports of fatigue would therefore avoid mirtazapine at this time and recommend introduction of low-dose sertraline 25 mg daily for management of depressive symptoms. Reviewed sertraline dose, purpose, and side effects at length with the patient's /DPOA and in agreement for a trial. Advised the patient's /DPOA that it may take 2 to 4 weeks to see noted effect of the medication. There is room to titrate up based on the patient's clinical response of the dosage of sertraline. Obtain BMP in 4 weeks to monitor for hyponatremia and follow with results. Continue to provide supportive listening to the patient and his . 3. Dementia. Likely mixed or vascular in nature given the patient's family history of dementia as well as his underlying cardiac history. Chronic. Progressive. Fall precautions. On no disease modifying agents. Given the patient's advanced age and chronic immobility is a gradual Yoon is expected. Time Spent: CPT 22336 Plan of care reviewed with the patient's and nursing staff with understanding verbalized. Supportive listening provided to the , Kyra. Disclaimer: The chart note was formulated using voice recognition technology and unfortunately sound alike errors may occur.
== END 2020-03-05 15:51 | disposition home or self-care (01) ==
LOC: PC 15:50
PROVIDERS: ATTEND Nurse Practitioner Family
DX: Z51.5 Encounter for palliative care (principal); R63.4 Abnormal weight loss; F32.9 Major depressive disorder, single episode, unspecified; F03.90 Unspecified dementia, unspecified severity, without behavioral disturbance, psychotic disturbance, mood disturbance, and anxiety; I10 Essential (primary) hypertension; I25.10 Atherosclerotic heart disease of native coronary artery without angina pectoris; I73.9 Peripheral vascular disease, unspecified; J44.9 Chronic obstructive pulmonary disease, unspecified; Z66 Do not resuscitate

== ENCOUNTER 2020-04-02 09:30 | Outpatient (CLI) | payer MEDICARE, OTHER ==
--- NOTE | 2020-04-02 11:22 | CONSULTATION NOTE ---
Palliative Care Follow Up - Referral Referring Provider: ANJU Beltran Time of Visit: Initiated 929 Referral setting: Assisted living Referral Reason: Depression/Dementia - Information Sources Records reviewed: Previous records reviewed History/Review of Systems obtained from: Patient, Family (/DPKyra ALANIS), Nursing Exam limitations: Clinical condition ([place] and poor historian due to dementia) - History of Present Illness Update Brief HPI Update: This is an 89-year-old gentleman who was seen in follow-up [facility] at [facility] due to depression and dementia. The patient has had a cognitive decline more specifically in the last year after a fall in May 2019. Please see HPI dictated 01/02/2020 for further details. The patient transition to [facility] due to the increased caregiver burden that the patient's was experiencing. He transition to [facility] in January 2020. The patient's /DPOA, Kyra continues to express regret about having to place the patient in a facility environment and previously was visiting him on a routine basis until further restrictions due to the coronavirus pandemic. Prior to admission to home place the patient was demonstrating signs and symptoms of underlying depression. After transitioning to home place he continued to stay in his room and would not go out for meals. After review and discussion with the patient's he was initiated on sertraline 25 mg daily. He has tolerated this adjustment well. His weight has also stabilized to 193.2 pounds after an initial weight loss from his admission weight of 203 pounds. Caregiving staff report that the patient has been coming out routinely during mealtimes. The patient himself also reports that he and his roommate are looking after each other and he has "a body." The patient is seen in the common area at a dining table in his own close with no evidence of distress. He does not recognize recall meeting this [facility]. Past Medical History: Patient has a past medical history of dementia, hypertension, coronary artery disease, peripheral arterial disease, COPD, sleep apnea with CPAP, BPH, macular degeneration, chronic hearing loss, glaucoma, coronary stent x2, pacemaker followed by Dr. Linsey Fortune, cardiac catheterization, right hernia repair, total knee replacement 2002, Achilles tendon repair, depression. 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 He was born in [place], [place]. He is presently to his fourth , Kyra and they have been for approximately 7 years. The patient has 1 daughter, Marcia from a previous marriage who resides in [place]. The patient transition to [facility] assisted living in January 2020. Patient is followed by palliative care social worker psychiatric. Medications/Allergies - Medications Home Medications: Ambulatory Orders Medication Instructions Recorded Confirmed Aspirin [Aspirin EC] 81 mg PO DAILY 01/02/20 02/07/20 Atorvastatin Calcium 40 mg PO QPM 01/02/20 02/07/20 Carvedilol [Coreg] 1 tab PO BID 01/02/20 02/07/20 Chlorthalidone 0.5 tab PO DAILY 01/02/20 02/07/20 Clindamycin HCl [Clindamycin 300MG 2 cap PO .1HRPRIORTODENTIST 01/02/20 02/07/20 CAP] Latanoprost/Pf [Latanoprost 0.005% 1 drops .LEFT EYE DAILY 01/02/20 02/07/20 Eye Drop] Potassium Chloride [Klor-Con 10] 10 meq PO DAILY 01/02/20 02/07/20 Acetaminophen [Tylenol] 650 mg PO Q6H PRN 02/07/20 02/07/20 Antacid With Smithicone 30 ml PO Q4H PRN 02/07/20 Bisacodyl Supp [Dulcolax Supp] 10 mg [place] DAILY PRN 02/07/20 02/07/20 Dorzolamide HCl/Pf [Dorzolamide 2% 1 drops BID MDD left eye 02/07/20 02/07/20 Eye Drop] Loperamide [Imodium] PRN MDD as directed 02/07/20 Magnesium Hydroxide [Milk of 30 ml PO DAILY PRN MDD if NO BM 02/07/20 02/07/20 Magnesia] after 3 days Sertraline [Zoloft] 25 mg PO DAILY 03/05/20 03/05/20 - Allergies Allergies/Adverse Reactions: Allergies Allergy/AdvReac Type Severity Reaction Status Date / Time amoxicillin [Amoxicillin] Allergy Unknown Hives Verified 01/02/20 14:34 Review of Systems - Constitutional Constitutional: reports: Fatigue, Weight stable (stablized at 193.6lb with typically consuming 50-100% of meals per meal monitoring). denies: Fever - Eyes Eyes: reports: Vision loss (left eye), Corrective lenses - Ears, Nose & Throat Ears, Nose & Throat: reports: Hearing loss - Cardiovascular Cardiovascular: denies: Chest pain - Respiratory Respiratory: denies: Cough - Gastrointestinal Gastrointestinal: reports: Good appetite. denies: Abdominal pain, Constipation - Genitourinary Genitourinary: reports: Incontinence. denies: Dysuria - Musculoskeletal Musculoskeletal: reports: Assistive devices. denies: Joint pain - Integumentary Integumentary: denies: Rash - Neurological Neurological: reports: General weakness, Memory problems - Psychiatric Psychiatric: reports: Depression (improved with initiation of sertraline) - Hematologic/Lymphatic Hematologic/Lymph: Other (No recurrent infections) - All Other Systems All Other Systems: reports: Reviewed and negative (ROS is limated as patient is a poor historian due to dementia. Additional ROS supplemented by nursing, and caregiving staff.) Physical Exam - Vital Signs Temperature: 36.5 C Pulse Rate: 60 O2 Saturation: 96 (on RA at rest) Blood Pressure: 155/74 (left wrist cuff) - Physical Exam General Appearance: positive: No acute distress, Alert, Other (sitting up at dinning room table) Eyes Bilateral: positive: Normal inspection ENT: positive: No signs of dehydration Neck: positive: Trachea midline Cardiovascular: positive: Regular rate & rhythm Respiratory: positive: No respiratory distress, Other (bibasal crackles) Abdomen: positive: Non-tender, Soft, Nml bowel sounds, Other (+round) Skin: positive: Dryness Extremities: positive: No pedal edema Neurologic/Psychiatric: positive: Oriented x3 (forgetful, able to recall: year, season, state, self but unable to state where he is living), Depressed mood/affect (improved and more engaged with smiling with [employer] DEVELOPER than last evaluation) Palliative Care - POLST Patient has POLST: Yes POLST Status: DNR, Comfort Measures Performance Status: FAST 6D - Palliative Care Discussion: Patient transition to [facility] assisted [facility] in January 2020 and was displaying evidence of depressive symptoms with noted weight loss and the desire to not participate and come out of his room at the facility. He was initiated on sertraline 25 mg daily and has been on this medication for approximately 4 weeks with positive response. He is coming out of his room for meals and is engaged with his roommate who he considers "a body." His weight loss has sta bilized and he can continues to consume the majority of his meals upon review of meal monitoring. This transition to [facility] assisted living has been difficult for the patient's /DPOA especially in light of further tightening of restrictions due to the coronavirus. The patient's was previously visiting the patient on a routine basis. The patient had previously consistently expressed the desire to leave and go home. However, this was not the focus during today's visit but he did relay about the desire to go home "at some point" in the future but it was not the sole focus of his thoughts. Impression and Recommendations - Palliative Care Impression: This is an 89-year-old gentleman with a significant past cardiac history with underlying dementia likely vascular nature, F AST 6D with underlying depression. He has responded well to initiation of sertraline 25 mg daily and is more engaged in his environment and other residents at the assisted living facility. Going home is no longer the sole focus of his thoughts. Palliative care to continue to provide support, symptom management and advance care planning. Recommendations/Counseling Done: 1. Depression. Patient has had stabilization of previous weight loss to 193.6 pounds. When admission he weighed 203 pounds. Continue on weekly weights and meal monitoring. Weight loss likely multifactorial due to depressive symptoms and given positive response to initiation of of sertraline for management of his depressive symptoms this has stabilized his weight. Continue to monitor. 3. Depression. The patient is beginning to appear to adjust to his new environment. He is no longer displaying signs of isolation and is going out of his room for meals and engaging with a relationship and a body system with his roommate who he "looks after." He has tolerated the initiation of sertraline 25 mg daily and given the positive response would not adjust the dosage at this time. He has a pending BMP to monitor for electrolytes. Continue to provide supportive listening to the patient and his . Continue to monitor and adjust medication management based on the patient's underlying symptoms. 4. Dementia. Likely vascular in nature given the patient's underlying cardiac history. Chronic. Progressive. Fall precautions. On no disease modifying agents. Given the patient's advanced age and chronic comorbidities a gradual Yoon is expected. 4. Advanced care planning. POLST in place as DN AR with comfort measures. The transition to an assisted living environment has been difficult for both the patient and his spouse. The patient's recognizes that this is a safe environment for the patient but given the underlying restrictions due to the coronavirus it makes visiting for her difficult and she was quite heartened to hear that the patient is more engaged and coming out of his room for meals since initiation of low-dose sertraline. Continue to provide supportive listening to the patient's spouse. Time Spent: CPT 01162 Plan of care reviewed the patient's and nursing staff with understanding verbalized. Supportive listening provided to the , Kyra. Disclaimer: The chart note was formulated using voice recognition technology and unfortunately sound alike errors may occur.
== END 2020-04-02 09:31 | disposition home or self-care (01) ==
LOC: PC 09:30
PROVIDERS: ATTEND Nurse Practitioner Family
DX: Z51.5 Encounter for palliative care (principal); F32.9 Major depressive disorder, single episode, unspecified; F03.90 Unspecified dementia, unspecified severity, without behavioral disturbance, psychotic disturbance, mood disturbance, and anxiety; I25.10 Atherosclerotic heart disease of native coronary artery without angina pectoris; I10 Essential (primary) hypertension; I73.9 Peripheral vascular disease, unspecified; J44.9 Chronic obstructive pulmonary disease, unspecified; Z95.0 Presence of cardiac pacemaker; Z66 Do not resuscitate

== ENCOUNTER 2020-05-21 14:45 | Outpatient (CLI) | payer MEDICARE, OTHER ==
--- NOTE | 2020-05-21 18:20 | CONSULTATION NOTE ---
Palliative Care Follow Up - Referral Referring Provider: ANJU Beltran Time of Visit: Iniated 1445 Referral setting: Assisted living Referral Reason: Depression/Dementia - Information Sources Records reviewed: Previous records reviewed History/Review of Systems obtained from: Patient, Caregiver, Nursing Exam limitations: Clinical condition ([place] and poor historian due to dementia) - History of Present Illness Update Brief HPI Update: This is an 89 year old gentleman who was seen in follow-up today at [facility] due to depression and dementia. The patient has had a cognitive decline more specifically in the last year after a fall in May 2019. Please see HPI dictated 01/02/2020 for further details. Patient [facility]ed into [facility] in January 2020. Initially, the patient with persistently asked his /DPOA, Kyra about returning home as he did not want to be in a facility environment during their visits. However, he is no longer asking this when they have their visits. He is also moved pods and has transferred to [facility] which has been a better fit for him. Staff report that he is more engaged in this environment. Now the patient is no longer expressing the desire to return home this is a is some of the burden for the patient's /DPOA regarding the need for placement. His mood has also improved with the initiation of sertraline 25 mg daily. His weight is presently at 188.4 pounds. Staff deny any behavioral concerns. No recent falls. His meal monitoring has been discontinued as he was consuming approximately 100% of his meals throughout the day. The patient is seen in a common area chair watching TV initially sleeping. He is arousable and displays no evidence of distress. No recent medication changes. Past Medical History: Patient has a past medical history dementia, hypertension, coronary artery disease, peripheral arterial disease, COPD, sleep apnea with CPAP, BPH, macular degeneration, chronic hearing loss, glaucoma, coronary stent x2, pacemaker followed by Dr. Tijerina, cardiac catheterization, right hernia repair, total knee replacement 2002, Achilles tendon repair, depression. 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 He was born in [place], [place]. He is presently to his fourth , Kyra and they have been for approximately 7 years. The patient has 1 daughter, Marcia from a previous marriage who resides in [place], [place]. The patient transition to [facility] assisted living in January 2020. This week he and some of the other residents were scheduled to go on a bus trip but the bus broke down but they had a nice time out on the bus for change of scenery due to coronavirus. Patient is followed by palliative care social service worker. Medications/Allergies - Medications Home Medications: Ambulatory Orders Medication Instructions Recorded Confirmed Aspirin [Aspirin EC] 81 mg PO DAILY 01/02/20 02/07/20 Atorvastatin Calcium 40 mg PO QPM 01/02/20 02/07/20 Carvedilol [Coreg] 1 tab PO BID 01/02/20 02/07/20 Chlorthalidone 0.5 tab PO DAILY 01/02/20 02/07/20 Clindamycin HCl [Clindamycin 300MG 2 cap PO .1HRPRIORTODENTIST 01/02/20 02/07/20 CAP] Latanoprost/Pf [Latanoprost 0.005% 1 drops .LEFT EYE DAILY 01/02/20 02/07/20 Eye Drop] Potassium Chloride [Klor-Con 10] 10 meq PO DAILY 01/02/20 02/07/20 Acetaminophen [Tylenol] 650 mg PO Q6H PRN 02/07/20 02/07/20 Antacid With Smithicone 30 ml PO Q4H PRN 02/07/20 Bisacodyl Supp [Dulcolax Supp] 10 mg [place] DAILY PRN 02/07/20 02/07/20 Dorzolamide HCl/Pf [Dorzolamide 2% 1 drops BID MDD left eye 02/07/20 02/07/20 Eye Drop] Loperamide [Imodium] PRN MDD as directed 02/07/20 Magnesium Hydroxide [Milk of 30 ml PO DAILY PRN MDD if NO BM 02/07/20 02/07/20 Magnesia] after 3 days Sertraline [Zoloft] 25 mg PO DAILY 03/05/20 03/05/20 - Allergies Allergies/Adverse Reactions: Allergies Allergy/AdvReac Type Severity Reaction Status Date / Time amoxicillin [Amoxicillin] Allergy Unknown Hives Verified 01/02/20 14:34 Review of Systems - Constitutional Constitutional: reports: Fatigue, Weight loss (weight 188.4lb, consuming typically 100% of meals). denies: Fever - Eyes Eyes: reports: Vision loss (left eye), Corrective lenses - Ears, Nose & Throat Ears, Nose & Throat: reports: Hearing loss - Cardiovascular Cardiovascular: denies: Chest pain - Respiratory Respiratory: denies: Cough - Gastrointestinal Gastrointestinal: reports: Good appetite. denies: Constipation - Genitourinary Genitourinary: reports: Incontinence. denies: Dysuria - Musculoskeletal Musculoskeletal: reports: Assistive devices. denies: Joint pain - Integumentary Integumentary: reports: Dryness - Neurological Neurological: reports: General weakness, Memory problems - Psychiatric Psychiatric: reports: Depression (controlled) - Endocrine Endocrine: denies: Diabetes type 2 - Hematologic/Lymphatic Hematologic/Lymph: Other (No recurrent infections) - All Other Systems All Other Systems: reports: Reviewed and negative (ROS is limated as patient is a poor historian due to dementia. Additional ROS supplemented by nursing, and caregiving staff.) Physical Exam - Vital Signs Temperature: 36.7 C Pulse Rate: 74 O2 Saturation: 95 Blood Pressure: 128/69 - Physical Exam General Appearance: positive: No acute distress, Alert, Other (in common area chair, slightly dishelved) Eyes Bilateral: positive: Normal inspection ENT: positive: No signs of dehydration Neck: positive: Trachea midline Cardiovascular: positive: Regular rate & rhythm Respiratory: positive: No respiratory distress, Other (bibasal crackles) Abdomen: positive: Non-tender, Soft, Nml bowel sounds, Other (+round) Skin: positive: Dryness Extremities: positive: No pedal edema Neurologic/Psychiatric: positive: Oriented x3 (forgetful), Mood/affect nml Palliative Care - POLST Patient has POLST: Yes POLST Status: DNR, Comfort Measures Pain: No pain Nausea: None Anorexia: None Sleep: Sleeps well Constipation: No Performance Status: FAST 6D - Palliative Care Discussion: Patient transition to [facility] assisted living in January 2020 and was displaying signs of depressive symptoms with noted weight loss and the desire to not leave his room. He was initiated on sertraline 25 mg daily and this has provided a positive response. He is no longer asking his or facility staff about returning home. He appears to have accepted that this is the best place for him to be. He is also improved since he has transition pods at home place to [facility] and this has been a better fit for per staff. The patient's /DPOA also finds with the patient adjusting more to his environment that this is eased some of her worry regarding having to place him Due to his advancing dementia. Impression and Recommendations - Palliative Care Impression: This is a 89-year-old gentleman with a significant past cardiac history with underlying dementia, likely vascular in nature, FAS T 60 with underlying depression that is presently controlled. He has become more engaged in his environment and his appetite has improved consuming typically 100% of his meals. Weight is presently at 188.4 pounds. Palliative care to continue provide support, symptom management and advance care planning. Recommendations/Counseling Done: 1. Depression. Patient's weight is presently at 188.4 pounds. He has now adjusted to his new environment With additional assistance from initiation of sertraline 25 mg daily. Upon follow-up with his BMP no evidence of hyponatremia after initiation of sertraline. Continue to monitor weekly weights. Continue to monitor and adjust medication based on the patient's underlying symptoms to optimize his comfort and provide support. 2. Caregiver burden. The patient's /DPOA has expressed guilt over having to move the patient into a facility due to his advancing dementia. It has eased the burden now during her weekly door visits at the facility that the patient appears to be more content and is no longer expressing the desire to return home. Supportive listening provided to the patient's spouse. 3. Dementia. Likely vascular nature given the patient's underlying cardiac history. Chronic. Progressive. Fall precautions. On no disease modifying agents. Given the patient's advanced age and chronic comorbidities a gradual decline is expected. Time Spent: CPT 37252 Plan of care reviewed with the patient's and nursing staff with understanding verbalized. Supportive listening provided to the patient's , Kyra. Kyra expresses the desire for palliative care to continue to follow the patient and provide her and him support. Disclaimer: The chart note was formulated using voice recognition technology and unfortunately sound alike errors may occur.
--- OUTSIDE RECORDS SUMMARY | 2020-05-22 04:54 | EXTERNAL MEDICAL SUMMARY RPT | Continuity of Care Document ---
:1930 Demographics Phone Unavailable Preferred Language Nigerian Marital Status Unknown Sabianism Affiliation Unknown Race Unknown Ethnic Group Unknown Author Organization [facility] Address [address] [place] [address] Phone Care Team Providers Name Role Phone SHARAD Unavailable Unavailable Allergies date description facility OPIOIDS - MORPHINE ANALOGUES [facility] SHELLFISH CONTAINING PRODUCTS [facility] O[facility]ODONE [facility] DOXYCYCLINE [facility]IN [facility]L [facility] TRAMADOL [facility] IOD[facility] OXYCODONE-ACETAMINOPHEN [facility] Social History date description facility [id number]
== END 2020-05-21 14:46 | disposition home or self-care (01) ==
LOC: PC 14:45
PROVIDERS: ATTEND Nurse Practitioner Family
DX: Z51.5 Encounter for palliative care (principal); F32.9 Major depressive disorder, single episode, unspecified; F03.90 Unspecified dementia, unspecified severity, without behavioral disturbance, psychotic disturbance, mood disturbance, and anxiety; Z66 Do not resuscitate

== ENCOUNTER 2020-07-15 13:00 | Outpatient (CLI) | payer MEDICARE, OTHER ==
--- NOTE | 2020-07-15 13:52 | CONSULTATION NOTE ---
Palliative Care Follow Up - Referral Referring Provider: ANJU Beltran Time of Visit: Initiated 1300 Referral setting: Assisted living Referral Reason: Depression/Weight loss - Information Sources Records reviewed: Previous records reviewed History/Review of Systems obtained from: Patient, Caregiver, Nursing Exam limitations: Clinical condition ([place] and poor historian due to dementia) - History of Present Illness Update Brief HPI Update: This is an 89-year-old gentleman who was [facility] in [facility] due to depression, history of weight loss and underlying dementia. Please see HPI dictated from 01/02/2020 for full details. The [facility] 2020. Upon initial transfer the patient was perseverating about returning home and this has leveled off and is only intermittent since initiation of sertraline 25 mg daily in February 2020. The patient has routine phone calls with his as well as door visits at the facility. He will bring up occasionally about the desire to return home but recognizes that this is not feasible and then will let the topic go. Today, he did comment that he "wants to go home." He is more engaged and interactive with the community. Previously, he would stay isolated in his room despite en couragement from caregiving staff. Since he has relocated to a new pod he has developed some friendships. His weight in January 2020 was 196.9 pounds and he is now holding steady at approximately 187.4 pounds. Staff deny any behavioral concerns. No recent falls. He is consuming typically 100% of his meals throughout the day which he reports "taste okay." The patient himself denies any acute concerns. The patient is seen in the common area at the dining table with another male resident where they are and engaged. The patient's hair is combed but does appear long. No evidence of distress. Past Medical History: Patient has a past medical history dementia, hypertension, coronary artery disease, peripheral arterial disease, COPD, sleep apnea with CPAP, BPH, macular degeneration, chronic hearing loss, glaucoma, coronary stent x2, pacemaker followed by Dr. Tijerina, cardiac catheterization, right hernia repair, total knee replacement 2002, Achilles tendon repair, depression. 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 He was born in [place], [place]. He is presently to his fourth , Kyra and they have been for approximately 7 years. The patient has 1 daughter, Marcia from a previous marriage who resides in [place], [place]. [facility]. He has routine phone call conversations with his , Kyra. Kyra comes to visit routinely for door visits. However, Kyra reports today that there are times that the caregivers are sitting by the patient during their visits impeding a direct interaction between her and the patient leaving her to often feel alone some herself after visiting. Medications/Allergies - Medications Home Medications: Ambulatory Orders Medication Instructions Recorded Confirmed Aspirin [Aspirin EC] 81 mg PO DAILY 01/02/20 02/07/20 Atorvastatin Calcium 40 mg PO QPM 01/02/20 02/07/20 Carvedilol [Coreg] 1 tab PO BID 01/02/20 02/07/20 Chlorthalidone 0.5 tab PO DAILY 01/02/20 02/07/20 Clindamycin HCl [Clindamycin 300MG 2 cap PO .1HRPRIORTODENTIST 01/02/20 02/07/20 CAP] Latanoprost/Pf [Latanoprost 0.005% 1 drops .LEFT EYE DAILY 01/02/20 02/07/20 Eye Drop] Potassium Chloride [Klor-Con 10] 10 meq PO DAILY 01/02/20 02/07/20 Acetaminophen [Tylenol] 650 mg PO Q6H PRN 02/07/20 02/07/20 Antacid With Smithicone 30 ml PO Q4H PRN 02/07/20 Bisacodyl Supp [Dulcolax Supp] 10 mg [place] DAILY PRN 02/07/20 02/07/20 Dorzolamide HCl/Pf [Dorzolamide 2% 1 drops BID MDD left eye 02/07/20 02/07/20 Eye Drop] Loperamide [Imodium] PRN MDD as directed 02/07/20 Magnesium Hydroxide [Milk of 30 ml PO DAILY PRN MDD if NO BM 02/07/20 02/07/20 Magnesia] after 3 days Sertraline [Zoloft] 25 mg PO DAILY 03/05/20 03/05/20 - Allergies Allergies/Adverse Reactions: Allergies Allergy/AdvReac Type Severity Reaction Status Date / Time amoxicillin [Amoxicillin] Allergy Unknown Hives Verified 01/02/20 14:34 Review of Systems - Constitutional Constitutional: reports: Fatigue (will nap easily during the day), Weight stable (weight 187.4lb 07/09/2020). denies: Fever, Poor appetite - Eyes Eyes: reports: Vision loss (left eye), Corrective lenses - Ears, Nose & Throat Ears, Nose & Throat: reports: Hearing loss. denies: Hearing aids, Dry mouth - Cardiovascular Cardiovascular: reports: Edema (trace, LE baseline). denies: Chest pain - Respiratory Respiratory: denies: Cough - Gastrointestinal Gastrointestinal: reports: Good appetite. denies: Constipation, Vomiting - Genitourinary Genitourinary: reports: Incontinence. denies: Dysuria - Musculoskeletal Musculoskeletal: reports: Assistive devices. denies: Joint pain - Integumentary Integumentary: reports: Dryness - Neurological Neurological: reports: General weakness, Memory problems - Psychiatric Psychiatric: reports: Depression (controlled) - Endocrine Endocrine: denies: Hypothyroidism - Hematologic/Lymphatic Hematologic/Lymph: denies: Other - All Other Systems All Other Systems: reports: Reviewed and negative (ROS is limated as patient is a poor historian due to dementia. Additional ROS supplemented by nursing, and caregiving staff.) Physical Exam - Vital Signs Temperature: 37.0 C Pulse Rate: 59 O2 Saturation: 95 (on RA) Blood Pressure: 141/68 (left wrist) - Physical Exam General Appearance: positive: No acute distress, Alert, Other (sitting at dinning table, slightly dishelved) Eyes Bilateral: positive: Normal inspection ENT: positive: No signs of dehydration Neck: positive: Trachea midline Cardiovascular: positive: No murmur, Bradycardia Respiratory: positive: No respiratory distress, Breath sounds nml Abdomen: positive: Non-tender, Soft, Nml bowel sounds, Other (+round) Skin: positive: Dryness Extremities: positive: Pedal edema (trace BLE) Neurologic/Psychiatric: positive: Oriented x3 (forgetful), Mood/affect nml Palliative Care - POLST Patient has POLST: Yes POLST Status: DNR, Comfort Measures Pain: No pain Performance Status: FAST 6D - Palliative Care Discussion: The patient is no longer displaying any signs or symptoms of depressive symptoms since initiation of sertraline 25 mg daily with a positive response. He is more engaged in his environment does not appear to need any dose adjustments at this present time. The patient's would appreciate more one-on-one time with the patient when she has door visits due to the restrictions of coronavirus preventing her from entering the facility and concerns were brought up to Gia at the facility who will relay this information to the program engagement director. In the facility will see how they can accommodate the patient and his . He has had some minor weight loss but this is has been consuming 100% of his meals that has steadily stabilized. He presently weighs 1 and 87.4 pounds. As he is no longer displaying any signs or symptoms of depressive features and a gradual weight loss would likely be indicative of his underlying advancement of his dementia if he continues to consume 100% of his meals. It is difficult for both the patient and his spouse to be from each other. The patient's spouse reflects that there are times where she is mostly in their condo and wishes for him to return home however, she recognizes the intensity of his care and it is not feasible for her at this time due to her own health risks strengths. The patient is no longer perseverating on returning home and acknowledges that the staff there "take good care of me." Impression and Recommendations - Palliative Care Impression: This is a vadim 89-year-old gentleman with a significant past cardiac history with underlying dementia, likely vascular in nature, FAS D 60 with underlying depression that is presently controlled. He has become more engaged in his appetite environment and his appetite has significantly improved with noted weight gain to 187.4 pounds. Supportive listening provided to the patient and his spouse. Palliative care to continue provide support, symptom management, care coordination and advance care planning. Recommendations/Counseling Done: 1. Depression. The patient's weight is presently 187.4 pounds. He has not adjusted to his new environment and has tolerated introduction of sertraline 25 mg daily which has assisted him in controlling his depressive symptoms. No further dose adjustments of sertraline at the present time providers room to titrate the dose up if needed for symptom management. Supportive listening provided. 2. Weight loss. Has stabilized with weight at 187.4 pounds. Patient is typically consuming 100% of his meals. Weight loss was likely indicative for underlying dementia that was not being adequately controlled and subsequently the patient has had improvement of his appetite. Continue to monitor weekly weights as ordered. 3. Dementia. Likely vascular nature given the patient's underlying cardiac history. Chronic. Progressive. Fall precautions. On no disease modifying agents. Given the patient's advanced age and chronic comorbidities a gradual [place] is expected. 4. Caregiver burden. The patient's /DPOA recognizes the need for the patient to be in a facility setting due to his increasing care needs however, she continues to gravel with her emotions from being from the patient. Supportive listening provided today to the patient's . Assisted with care coordination regarding concerns related to your visitations to facility staff at the request of the patient's as noted in palliative care discussion. CPT 59404 Plan of care reviewed with patient's , Kyra nursing staff with understanding verbalized. Supportive listening provided to the patient's , Kyra. Kyra is expresses gratitude for palliative care to provide onsite support to both her and the patient. Disclaimer: The chart note was formulated using voice recognition technology and unfortunately sound alike errors may occur.
== END 2020-07-15 13:01 | disposition home or self-care (01) ==
LOC: PC 13:00
PROVIDERS: ATTEND Nurse Practitioner Family
DX: Z51.5 Encounter for palliative care (principal); F32.9 Major depressive disorder, single episode, unspecified; F03.90 Unspecified dementia, unspecified severity, without behavioral disturbance, psychotic disturbance, mood disturbance, and anxiety; Z66 Do not resuscitate

== ENCOUNTER 2020-09-30 14:10 | Outpatient (CLI) | payer MEDICARE, OTHER ==
--- NOTE | 2020-09-30 16:19 | CONSULTATION NOTE ---
Palliative Care Follow Up - Referral Referring Provider: ANJU Beltran Time of Visit: Initiated 1410 Referral setting: Assisted living Referral Reason: Left 5th finger concern/Dementia/Depression - Information Sources Records reviewed: Previous records reviewed History/Review of Systems obtained from: Patient, Family (spouse/TALIB Rae via phone), Nursing (JENNIFER Pierce) Exam limitations: Clinical condition (Advanced Dementia) - History of Present Illness Update Brief HPI Update: This is an 89-year-old gentleman who was seen in follow-[facility] due to depression, dementia and concerns for his left fifth finger. Please see early HPI dictated on 01/02/2020 for full details. Nursing reports that he has developed a scab to his left lateral aspect of his ankle that was initially placed with a Band-Aid that became saturated and left open to air. The area is resolving without any surrounding erythema or discharge. Nursing staff also wish for the patient's fifth finger on his left hand to be evaluated as there is some localized redness overall improved cuticle that was noticed on 09/19. There has not been any drainage. The patient himself denies any tenderness to palpation at the site. There was recently a nail career technical counselor that was ordered sent performing nail care. The patient's continues to visit regularly at the facility. Per her report he appears to have finally acclimated to his Environment. He continues on sertraline 25 mg daily. Staff deny any behavioral concerns. He has not had any recent falls. The patient himself is seen in the common area sitting in a chair watching television with his Rollator in front of him. His hair has recently been cut. No evidence of distress. 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 He was born in [place], [place]. He is presently remarried to his fourth , Kyra they have been there for approximately 7. The patient has 1 daughter, Marcia from a previous marriage who resides in [place], [place]. The [facility]. The patient spouse is presently out of town enjoying the company of her grandchildren and great grandchild. This has been a joyous occasion for her after she went back and forth regarding the decision to go out of town she plans to visit on Wednesday upon her return to check in on the patient. Medications/Allergies - Medications Home Medications: Ambulatory Orders Medication Instructions Recorded Confirmed Aspirin [Aspirin EC] 81 mg PO DAILY 01/02/20 02/07/20 Atorvastatin Calcium 40 mg PO QPM 01/02/20 02/07/20 Carvedilol [Coreg] 1 tab PO BID 01/02/20 02/07/20 Chlorthalidone 0.5 tab PO DAILY 01/02/20 02/07/20 Clindamycin HCl [Clindamycin 300MG 2 cap PO .1HRPRIORTODENTIST 01/02/20 02/07/20 CAP] Latanoprost/Pf [Latanoprost 0.005% 1 drops .LEFT EYE DAILY 01/02/20 02/07/20 Eye Drop] Potassium Chloride [Klor-Con 10] 10 meq PO DAILY 01/02/20 02/07/20 Acetaminophen [Tylenol] 650 mg PO Q6H PRN 02/07/20 02/07/20 Antacid With Smithicone 30 ml PO Q4H PRN 02/07/20 Bisacodyl Supp [Dulcolax Supp] 10 mg [place] DAILY PRN 02/07/20 02/07/20 Dorzolamide HCl/Pf [Dorzolamide 2% 1 drops BID MDD left eye 02/07/20 02/07/20 Eye Drop] Loperamide [Imodium] PRN MDD as directed 02/07/20 Magnesium Hydroxide [Milk of 30 ml PO DAILY PRN MDD if NO BM 02/07/20 02/07/20 Magnesia] after 3 days Sertraline [Zoloft] 25 mg PO DAILY 03/05/20 03/05/20 - Allergies Allergies/Adverse Reactions: Allergies Allergy/AdvReac Type Severity Reaction Status Date / Time amoxicillin [Amoxicillin] Allergy Unknown Hives Verified 01/02/20 14:34 Review of Systems - Constitutional Constitutional: reports: Fatigue (will nap easily during the day). denies: Fever, Poor appetite - Eyes Eyes: reports: Vision loss (left eye) - Ears, Nose & Throat Ears, Nose & Throat: reports: Hearing loss. denies: Hearing aids, Dry mouth - Cardiovascular Cardiovascular: reports: Edema (trace, LE baseline). denies: Chest pain - Respiratory Respiratory: denies: Cough - Gastrointestinal Gastrointestinal: reports: Good appetite. denies: Constipation, Vomiting - Genitourinary Genitourinary: reports: Incontinence. denies: Dysuria - Musculoskeletal Musculoskeletal: reports: Assistive devices. denies: Joint pain - Integumentary Integumentary: reports: Other (scab to left ankle and redness to cuticle of 5th finger of left hand) - Neurological Neurological: reports: General weakness, Memory problems - Psychiatric Psychiatric: reports: Depression (controlled) - Endocrine Endocrine: denies: Hypothyroidism - Hematologic/Lymphatic Hematologic/Lymph: denies: Other - All Other Systems All Other Systems: reports: Reviewed and negative (ROS is limated as patient is a poor historian due to dementia. Additional ROS supplemented by JENNIFER Pierce and , Kyra.) Physical Exam - Vital Signs Temperature: 36.4 C Pulse Rate: 61 O2 Saturation: 94 (on RA at rest) Blood Pressure: 138/88 (right wrist) - Physical Exam General Appearance: positive: No acute distress, Alert, Other (OOB in recliner in common area, hair has been cut) Eyes Bilateral: positive: Normal inspection ENT: positive: No signs of dehydration Neck: positive: Trachea midline Cardiovascular: positive: Regular rate & rhythm Respiratory: positive: No respiratory distress, Breath sounds nml. negative: Wheezes Abdomen: positive: Non-tender, Soft, Nml bowel sounds, Other (+round) Skin: positive: Other ((1) scab to left lateral ankle without erythea or discharge--resolving. (2)left 5th finger mild erythema at cuticle base appx 3mm without abcess, drainage or TTP consistent with paronychia) Extremities: positive: Pedal edema (trace BLE) Neurologic/Psychiatric: positive: Oriented x3 (forgetful), Flat affect, Other (not overly talkative. will answer questions fully when addressed or shrug if he does not know the answer). negative: Depressed mood/affect Palliative Care - POLST Patient has POLST: Yes POLST Status: DNR, Comfort Measures Pain: No pain - Palliative Care Discussion: The patient appears to have adapted to his new home environment at [facility] and does not display signs of distress or symptoms. His symptoms are controlled with sertraline 25 mg daily. His continues to provide support via phone as well as in person visits with lightening restrictions due to vaccination for Covid19. The patient has demonstrated parenchyma to his fifth finger on his left hand that is localized and nontender. There is no evidence of cellulitis and would benefit from warm soaks routinely for localized care and the is in agreement. Impression and Recommendations - Palliative Care Impression: This is a vadim 89-year-old gentleman with a significant past cardiac history with underlying dementia, likely vascular nature with controlled depression presenting with fifth finger mild localized paronychia. Palliative care to continue provide support, symptom management, care coordination and advance care planning. Recommendations/Counseling Done: 1. Paronychia left 5th finger, mild. No past history of DM. Request that facility continue to monitor the site and notify PCP if there is development of an abscess or spreading redness. Request that the fifth finger on the left hand have Epson salts dissolved in warm water and soak the finger for 15 minutes 3 times daily for 7 days. To notify PCP if not resolved at that time. 2.Depression. The patient has adjusted to his new environment with stabilization of his mood. Continue on sertraline 25 mg daily which has been assisting controlling his depressive symptoms. At the present time, no need to adjust sertraline but there is room to titrate up if needed for symptom management. Supportive listening provided to the patient's . Continue to monitor. 3. Dementia. Likely vascular nature given the patient's underlying cardiac history. Chronic. Progressive. Fall precautions. On no disease modifying agents. Given the patient's advanced age and chronic comorbidities a gradual decline is expected. CPT 61534 Plan of care review with patient's , Kyra via phone, and JENNIFER Hollingsworth with agreement and understanding verbalized. Supportive listening provided to the patient's spouse, Kyra over the phone to normalize her feelings regarding advancement of dementia and caregiver burden. Disclaimer: The chart note was formulated using voice recognition technology and unfortunately sound alike errors may occur.
== END 2020-09-30 14:11 | disposition home or self-care (01) ==
LOC: PC 14:10
PROVIDERS: ATTEND Nurse Practitioner Family
DX: Z51.5 Encounter for palliative care (principal); L03.012 Cellulitis of left finger; F32.9 Major depressive disorder, single episode, unspecified; F03.90 Unspecified dementia, unspecified severity, without behavioral disturbance, psychotic disturbance, mood disturbance, and anxiety; Z66 Do not resuscitate